=== PATIENT | male | born 1985 | race Two or more races ===

== ENCOUNTER 2017-01-18 20:08 | Emergency (ER) | payer OTHER ==
[~2017-01-18] VITALS: Ht 167.6 cm; Wt 72.6 kg
[2017-01-18 20:41] VITALS: BP 126/86
[2017-01-18] MEDS ORDERED: ONDANSETRON ODT 4 MG TAB PO ONE (23:30)
== END 2017-01-19 00:18 | disposition home or self-care (01) ==
LOC: ER 20:14
DX: T56.0X1A Toxic effect of lead and its compounds, accidental (unintentional), initial encounter (principal); H10.33 Unspecified acute conjunctivitis, bilateral; X58.XXXA Exposure to other specified factors, initial encounter; Y93.9 Activity, unspecified; Y99.0 Civilian activity done for income or pay; Y92.69 Other specified industrial and construction area as the place of occurrence of the external cause
CPT/HCPCS: 99283; Q0162

== ENCOUNTER 2017-01-19 14:36 | Emergency (ER) | payer OTHER ==
[~2017-01-19] VITALS: Ht 167.6 cm; Wt 73.9 kg
[2017-01-19 14:44] VITALS: BP 119/76
== END 2017-01-19 15:52 | disposition home or self-care (01) ==
LOC: ER 14:36
DX: H10.9 Unspecified conjunctivitis (principal); Z77.098 Contact with and (suspected) exposure to other hazardous, chiefly nonmedicinal, chemicals
CPT/HCPCS: 99283; J7030